=== PATIENT | female | born 1970 ===

== ENCOUNTER 2018-10-16 08:16 | Inpatient (IN) | payer BC ==
[2018-10-16] MEDS ORDERED: Sodium Chloride 0.9% 1,000 ML IV STA (08:57)
[2018-10-16] MEDS ORDERED: Morphine 2 mg/ml ISec IVP STA (08:58)
[2018-10-16 09:22] LABS: BASO # 0.01 K/mm3 (0.0-2.0); BASO % 0.1 % (0.0-3.0); HEMOGLOBIN 13.3 g/dL (12.0-16.0); LYMPH # 1.2 (1.2-3.4); LYMPH % 9.4 % (22.0-35.0); MEAN CELL VOLUME 66.2 fl (80.0-105.0); MEAN CORPUSCULAR HEMOGLOBIN 21.2 pg (25.0-35.0); MEAN PLATELET VOLUME 9.4 fl (7.0-11.0); MONO # 0.7 (0.1-0.6); MONO % 5.7 % (1.0-6.0); RBC 6.27 10^6/uL (3.5-6.1); RED CELL DISTRIBUTION WIDTH 15.6 % (11.5-14.5); WHITE BLOOD COUNT 12.7 10^3/uL (4.5-11.0)
[2018-10-16 09:31] LABS: URINE BILIRUBIN NEGATIVE (NEGATIVE); URINE BLOOD NEGATIVE (NEGATIVE); URINE GLUCOSE (UA) NEGATIVE (NEGATIVE); URINE LEUKOCYTE ESTERASE NEGATIVE Leu/uL (NEGATIVE); URINE PROTEIN NEGATIVE mg/dL (<30 mg/dL); URINE UROBILINOGEN 0.2 E.U./dL (<1 E.U./dL)
[2018-10-16 09:31] LABS: ALB/GLOB RATIO 1.3 (1.1-1.8); ALBUMIN 4.8 g/dL (3.0-4.8); ALT/SGPT 13 U/L (7-56); AST/SGOT 30 U/L (14-36); BLOOD UREA NITROGEN 11 mg/dL (7-21); CALCIUM 9.5 mg/dL (8.4-10.5); GFR NON-AFRICAN AMERICAN > 60; LIPASE 45 U/L (23-300)
[2018-10-16 09:32] LABS: INR 1.04; PARTIAL THROMBOPLASTIN TIME 40.1 Seconds (26.9-38.3); PROTHROMBIN TIME 11.8 SECONDS (9.4-12.5)
[2018-10-16 09:33] LABS: URINE APPEARANCE CLEAR (CLEAR); URINE COLOR YELLOW (YELLOW)
--- NOTE | 2018-10-16 09:40 | ED PDOC ---
Arrival/HPI - General Historian: Patient - History of Present Illness Narrative History of Present Illness (Text): 47 y/o female with no significant PMH presents to the ED with abdominal pain for one day. Pain started in epigastic area and moves downward to RLQ area. It's moderate, achy, no alleviating or worsening symptoms. Pain is associated with nausea and multiple episodes of non bloody vomiting. She denied diarrhea, fever, chills, change in bowel movement, hematochezia, melena, hemoptysis, dysurea, urinary frequency or other urinary symptoms. Patient does not use NSAID regularly and her menses are regular. She denied SOB, chest pain, palpitations, headache, dizziness, muscle weakness, leg swelling. Time/Duration: 24 hours Symptom Course: Unchanged Quality: Aching Severity Level: 7 Context: Home <Vinicius Lassiter - Last Filed: 10/16/18 09:41> <Parrish Hernadez - Last Filed: 10/16/18 12:28> - General Chief Complaint: Abdominal Pain Time Seen by Provider: 10/16/18 08:21 Past Medical History - Provider Review Nursing Documentation Reviewed: Yes - Travel History Have you recently traveled outside [place] w/in the past 3 mons?: No - Infectious Disease Hx of Infectious Diseases: None - Reproductive Menopause: Yes - Cardiac Hx Cardiac Disorders: No - Pulmonary Hx Respiratory Disorders: No - HEENT Hx HEENT Disorder: No - Psychiatric Hx Substance Use: No - Anesthesia Hx Anesthesia: No <Vinicius Lassiter - Last Filed: 10/16/18 09:41> Family/Social History - Physician Review Nursing Documentation Reviewed: Yes Family/Social History: Diabetes, Hypertension Smoking Status: Unknown If Ever Smoked Hx Alcohol Use: No Hx Substance Use: No Hx Substance Use Treatment: No <Vinicius Lassiter - Last Filed: 10/16/18 09:41> Allergies/Home Meds <Vinicius Lassiter - Last Filed: 10/16/18 09:41> <Parrish Hernadez - Last Filed: 10/16/18 12:28> Allergies/Adverse Reactions: Allergies No Known Allergies Allergy (Verified 10/16/18 08:26) Home Medications: Home Meds Medication Instructions Recorded Confirmed No Known Home Med 10/16/18 10/16/18 Review of Systems - Physician Review All systems were reviewed & negative as marked: Yes - Review of Systems Constitutional: Normal. absent: Weight Change, Fevers Eyes: Normal ENT: Normal Respiratory: Normal. absent: SOB, Cough Cardiovascular: Normal Gastrointestinal: Abdominal Pain, Nausea, Vomiting, Anorexia. absent: Constipation, Diarrhea, Hematochezia, Hematemesis Genitourinary Female: Normal Musculoskeletal: Normal Skin: Normal Endocrine: Normal Hemo/Lymphatic: Normal Psychiatric: Normal <Vinicius Lassiter - Last Filed: 10/16/18 09:41> Physical Exam Vital Signs Reviewed: Yes Vital Signs Temp Pulse Resp BP Pulse Ox 10/16/18 08:24 98.5 F 85 16 116/78 97 Temperature: Afebrile Blood Pressure: Normal Pulse: Regular Respiratory Rate: Normal Appearance: Positive for: Well-Appearing, Non-Toxic, Comfortable Pain Distress: Mild Mental Status: Positive for: Alert and Oriented X 3 - Systems Exam Head: Present: Atraumatic, Normocephalic Pupils: Present: PERRL Extroacular Muscles: Present: EOMI Conjunctiva: Present: Normal Ears: Present: Normal Mouth: Present: Moist Mucous Membranes Neck: Present: Normal Range of Motion Respiratory/Chest: Present: Clear to Auscultation, Good Air Exchange. No: Respiratory Distress, Wheezes, Rhonchi Cardiovascular: Present: Regular Rate and Rhythm, Normal S1, S2. No: Rub, Gallop Abdomen: Present: Tenderness, Rebound, Guarding, McBurney's Point Tender, Rovsing's Sign Present, Other (positive obturator sign) Back: Present: Normal Inspection Upper Extremity: Present: Normal Inspection. No: Cyanosis, Edema Lower Extremity: Present: Normal Inspection. No: Edema Neurological: Present: GCS=15, CN II-XII Intact, Speech Normal Skin: Present: Warm, Dry, Normal Color. No: Rashes Psychiatric: Present: Alert, Oriented x 3, Normal Insight <Vinicius Lassiter - Last Filed: 10/16/18 09:41> Vital Signs Temp Pulse Resp BP Pulse Ox 10/16/18 08:24 98.5 F 85 16 116/78 97 <Parrish Hernadez - Last Filed: 10/16/18 12:28> Medical Decision Making - Lab Interpretations Lab Results: Total Bilirubin 1.0 mg/dL (0.2-1.3) 10/16/18 09:08 AST 30 U/L (14-36) 10/16/18 09:08 ALT 13 U/L (7-56) 10/16/18 09:08 Alkaline Phosphatase 72 U/L (38-126) 10/16/18 09:08 Total Protein 8.5 g/dL (5.8-8.3) H 10/16/18 09:08 Albumin 4.8 g/dL (3.0-4.8) 10/16/18 09:08 Globulin 3.7 gm/dL 10/16/18 09:08 Albumin/Globulin Ratio 1.3 (1.1-1.8) 10/16/18 09:08 Lipase 45 U/L (23-300) 10/16/18 09:08 - RAD Interpretation Radiology Orders: 10/16/18 08:58 ABD & PELVIS IV CONTRAST ONLY [CT] Stat - Medication Orders Current Medication Orders: Sodium Chloride (Sodium Chloride 0.9%) 1,000 mls @ 999 mls/hr IV .Q1H1M STA Stop: 10/16/18 09:57 Discontinued Medications Morphine Sulfate (Morphine) 2 mg IVP STAT STA Stop: 10/16/18 08:59 Last Admin: 10/16/18 09:24 Dose: 2 mg MAR Pain Assessment Document 10/16/18 09:24 MA (Rec: 10/16/18 09:24 [id number]) Pain Reassessment Is this a pain reassessment? Yes Sleep Is patient sleeping during reassessment? No Presence of Pain Presence of Pain Yes Pain Scale Used Protocol: PSCALES Pain Scale Used Numeric Location Pain Location Body Site Abdomen Description Description Constant Intensity of Pain at present 8 Pain Behavior Guarding Aggravating Factors Changing Position IVP Administration Document 10/16/18 09:24 MA (Rec: 10/16/18 09:24 [facility] [id number]) Charges for Administration # of IVP Administrations 1 Ondansetron HCl (Zofran Inj) 8 mg IVP STAT STA Stop: 10/16/18 08:58 Last Admin: 10/16/18 09:25 Dose: 8 mg IVP Administration Document 10/16/18 09:25 MA (Rec: 10/16/18 09:25 [facility] [id number]) Charges for Administration # of IVP Administrations 1 <Vinicius Lassiter - Last Filed: 10/16/18 09:41> ED Course and Treatment: 10/16/18 10:01 Sruthi Nichols is a 47 year old female who presents to the emergency department with a complaint of 1 day duration abdominal pain. In agreement with resident note, which includes further HPI details. Patient was seen and evaluated with resident, came up with plan and treatment together. 10/16/18 12:26 IMPRESSION: Thickening and abnormal enhancement of the appendix with periappendiceal fat infiltration consistent with acute appendicitis. No evidence of pneumoperitoneum or abscess. Dr. Louis consulted, assistant professor surgical technology took report. Dr. Lazo accepts patient to her service. - Lab Interpretations Lab Results: PT 11.8 SECONDS (9.4-12.5) 10/16/18 09:08 INR 1.04 10/16/18 09:08 APTT 40.1 Seconds (26.9-38.3) H 10/16/18 09:08 Total Bilirubin 1.0 mg/dL (0.2-1.3) 10/16/18 09:08 AST 30 U/L (14-36) 10/16/18 09:08 ALT 13 U/L (7-56) 10/16/18 09:08 Alkaline Phosphatase 72 U/L (38-126) 10/16/18 09:08 Total Protein 8.5 g/dL (5.8-8.3) H 10/16/18 09:08 Albumin 4.8 g/dL (3.0-4.8) 10/16/18 09:08 Globulin 3.7 gm/dL 10/16/18 09:08 Albumin/Globulin Ratio 1.3 (1.1-1.8) 10/16/18 09:08 Lipase 45 U/L (23-300) 10/16/18 09:08 Urine Color Yellow (YELLOW) 10/16/18 08:56 Urine Appearance Clear (CLEAR) 10/16/18 08:56 Urine pH 7.0 (4.7-8.0) 10/16/18 08:56 Ur Specific [place] 1.020 (1.005-1.035) 10/16/18 08:56 Urine Protein Negative mg/dL (<30 mg/dL) 10/16/18 08:56 Urine Glucose (UA) Negative mg/dL (NEGATIVE) 10/16/18 08:56 Urine Ketones Trace mg/dL (NEGATIVE) H 10/16/18 08:56 Urine Blood Negative (NEGATIVE) 10/16/18 08:56 Urine Nitrate Negative (NEGATIVE) 10/16/18 08:56 Urine Bilirubin Negative (NEGATIVE) 10/16/18 08:56 Urine Urobilinogen 0.2 E.U./dL (<1 E.U./dL) 10/16/18 08:56 Ur Leukocyte Esterase Negative Stella/uL (NEGATIVE) 10/16/18 08:56 Urine HCG, Qual Negative (NEGATIVE) 10/16/18 08:56 Urine HCG, Qual Negative (NEGATIVE) 10/16/18 08:56 - RAD Interpretation Radiology Orders: 10/16/18 08:58 ABD & PELVIS IV CONTRAST ONLY [CT] Stat - Medication Orders Current Medication Orders: Discontinued Medications Sodium Chloride (Sodium Chloride 0.9%) 1,000 mls @ 999 mls/hr IV .Q1H1M STA Stop: 10/16/18 09:57 Last Admin: 10/16/18 09:29 Dose: 999 mls/hr eMAR Start Stop Document 10/16/18 09:29 MA (Rec: 10/16/18 09:36 [place] [id number] Intravenous Solution Start Date 10/16/18 Start Time 09:30 Morphine Sulfate (Morphine) 2 mg IVP STAT STA Stop: 10/16/18 08:59 Last Admin: 10/16/18 09:24 Dose: 2 mg MAR Pain Assessment Document 10/16/18 09:24 MA (Rec: 10/16/18 09:24 [facility] [id number]) Pain Reassessment Is this a pain reassessment? Yes Sleep Is patient sleeping during reassessment? No Presence of Pain Presence of Pain Yes Pain Scale Used Protocol: PSCALES Pain Scale Used Numeric Location Pain Location Body Site Abdomen Description Description Constant Intensity of Pain at present 8 Pain Behavior Guarding Aggravating Factors Changing Position IVP Administration Document 10/16/18 09:24 MA (Rec: 10/16/18 09:24 [id number]) Charges for Administration # of IVP Administrations 1 Ondansetron HCl (Zofran Inj) 8 mg IVP STAT STA Stop: 10/16/18 08:58 Last Admin: 10/16/18 09:25 Dose: 8 mg IVP Administration Document 10/16/18 09:25 MA (Rec: 10/16/18 09:25 [id number]) Charges for Administration # of IVP Administrations 1 <Parrish Hernadez - Last Filed: 10/16/18 12:28> - Scribe Statement The provider has reviewed the documentation as recorded by the Scribe Angelica Del Valle Provider Scribe Attestation: All medical record entries made by the Scribe were at my direction and personally dictated by me. I have reviewed the chart and agree that the record accurately reflects my personal performance of the history, physical exam, medical decision making, and the department course for this patient. I have also personally directed, reviewed, and agree with the discharge instructions and disposition. <Parrish Hernadez - Last Filed: 10/16/18 12:28> Disposition/Present on Arrival - Present on Arrival Any Indicators Present on Arrival: No History of DVT/PE: No History of Uncontrolled Diabetes: No Urinary Catheter: No History of Decub. Ulcer: No History Surgical Site Infection Following: None <Vinicius Lassiter - Last Filed: 10/16/18 09:41> - Disposition Have Diagnosis and Disposition been Completed?: Yes Disposition Time: 11:09 Patient Plan: Admission <Parrish Hernadez - Last Filed: 10/16/18 12:28> - Disposition Diagnosis: Acute appendicitis Disposition: HOSPITALIZED Condition: FAIR
[2018-10-16] MEDS ORDERED: Iohexol 350 MG/100 ML VIAL ONE (09:46)
--- NOTE | 2018-10-16 10:29 | CT ---
Date of service: 10/16/2018 PROCEDURE: CT Abdomen and Pelvis with contrast HISTORY: RLQ tenderness COMPARISON: None. TECHNIQUE: Contrast dose: Radiation dose: Total exam DLP = 438.02 mGy-cm. This CT exam was performed using one or more of the following dose reduction techniques: Automated exposure control, adjustment of the mA and/or kV according to patient size, and/or use of iterative reconstruction technique. FINDINGS: LOWER THORAX: Unremarkable. LIVER: Unremarkable. No gross lesion or ductal dilatation. GALLBLADDER AND BILE DUCTS: Unremarkable. PANCREAS: Unremarkable. No gross lesion or ductal dilatation. SPLEEN: Unremarkable. ADRENALS: Unremarkable. No mass. KIDNEYS AND URETERS: Unremarkable. No hydronephrosis. No solid mass. VASCULATURE: Unremarkable. No aortic aneurysm. No aortic atherosclerotic calcification or mural plaque present. BOWEL: Unremarkable. No obstruction. No gross mural thickening. APPENDIX: Thickening and abnormal enhancement of the appendix with periappendiceal fat infiltration consistent with acute appendicitis. No evidence of pneumoperitoneum or abscess. PERITONEUM: Unremarkable. No free fluid. No free air. LYMPH NODES: Unremarkable. No enlarged lymph nodes. BLADDER: Unremarkable. REPRODUCTIVE: Unremarkable. BONES: No acute fracture. OTHER FINDINGS: None. IMPRESSION: Thickening and abnormal enhancement of the appendix with periappendiceal fat infiltration consistent with acute appendicitis. No evidence of pneumoperitoneum or abscess.
[2018-10-16] MEDS ORDERED: Piperacill/Tazo 4.5gm in NS 4.5 GM/100 ML BAG IVPB STA (10:50)
[2018-10-16] MEDS: Dextrose 5%/0.45% NS 1,000 ML IV SCH (11:53)
[2018-10-16 13:25] VITALS: BMI 27.9
[2018-10-16] MEDS ORDERED: Pneumococcal 23-Valent Vaccine IM ONE (13:25)
[2018-10-16] MEDS ORDERED: Influenza Vaccine 60 mcg/0.5 mL SYR (4YR UP) IM ONE (13:25)
--- NOTE | 2018-10-16 14:37 | CP.PCM.CON ---
History of Present Illness - History of Present Illness History of Present Illness: Clive Knight, PGY-[address] Louis (Surgery) Ms. Nichols is a pleasant 47 year old female with a recent history of tooth infection last week who presents with abdominal pain that began yesterday morning. Patient states that the pain was located above the umbilicus, and describes it as dull and rated as a 7/10 initially. Patient stated that after she woke up this morning, the pain has moved to the right lower quadrant and was constant. Patient endorses nausea, vomiting, chills, loss of appetite and shakes but denies fevers, dysuria, melena, hemtochezia, chest pain, palpitations, shortness of breath. Patient states that she vomited nonbilious nonbloody vomit that consisted of food and crackers 6-7 times since yesterday, before arriving at the hospital. PMHx: denies PSHx: dental procedure All: NKDA Social: denies ETOH, tobacco and illicit drug use Fam Hx: sister - wallace Meds: Denies PMD: Dr. Lazo Review of Systems - Review of Systems Review of Systems: 12 point ROS completed and negative except as described in HPI. Past Patient History - Infectious Disease Hx of Infectious Diseases: None - Past Social History Smoking Status: Never Smoked - CARDIAC Hx Cardiac Disorders: No - PULMONARY Hx Respiratory Disorders: No - NEUROLOGICAL Hx Neurological Disorder: No - HEENT Hx HEENT Problems: No - RENAL Hx Chronic Kidney Disease: No - ENDOCRINE/METABOLIC Hx Endocrine Disorders: No - HEMATOLOGICAL/ONCOLOGICAL Hx Blood Disorders: No - INTEGUMENTARY Hx Dermatological Problems: Yes Other/Comment: 5 areas of red skin to lower abd left, pt just noticed today, no c/o itch or discomfort - MUSCULOSKELETAL/RHEUMATOLOGICAL Hx Musculoskeletal Disorders: No Hx Falls: No - GASTROINTESTINAL Hx Gastrointestinal Disorders: No - GENITOURINARY/GYNECOLOGICAL Hx Genitourinary Disorders: Yes Other/Comment: 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 - PSYCHIATRIC Hx Psychophysiologic Disorder: No Hx Substance Use: No - SURGICAL HISTORY Hx Surgeries: No - ANESTHESIA Hx Anesthesia: No Meds Allergies/Adverse Reactions: Allergies Allergy/AdvReac Type Severity Reaction Status Date / Time No Known Allergies Allergy Verified 10/16/18 08:26 - Medications Medications: Current Medications Dextrose/Sodium Chloride (Dextrose 5%/0.45% Ns 1000 Ml) 1,000 mls @ 100 mls/hr IV .Q10H DEVORAH Last Admin: 10/16/18 11:53 Dose: 100 mls/hr Physical Exam - Constitutional Appears: Well, No Acute Distress - Head Exam Head Exam: ATRAUMATIC, NORMOCEPHALIC - Eye Exam Eye Exam: EOMI, Normal appearance Pupil Exam: PERRL - ENT Exam ENT Exam: Mucous Membranes Moist - Neck Exam Neck exam: Positive for: Normal Inspection - Respiratory Exam Respiratory Exam: Clear to Auscultation Bilateral, NORMAL BREATHING PATTERN - Cardiovascular Exam Cardiovascular Exam: RRR, +S1, +S2 - GI/Abdominal Exam GI & Abdominal Exam: Diminished Bowel Sounds, Soft, Tenderness (+ RLQ, + Rovsing, + Mcburney's point). absent: Distended, Firm, Guarding, Rebound - Extremities Exam Extremities exam: Positive for: full ROM - Back Exam Back exam: absent: CVA tenderness (L), CVA tenderness (R) - Neurological Exam Neurological exam: Alert, Oriented x3 - Psychiatric Exam Psychiatric exam: Normal Affect, Normal Mood - Skin Skin Exam: Dry, Intact, Normal Color, Warm Results - Vital Signs Recent Vital Signs: Last Vital Signs Temp 98.1 F 10/16/18 12:25 Pulse 75 10/16/18 12:58 Resp 16 10/16/18 12:58 BP 117/66 10/16/18 12:25 Pulse Ox 96 10/16/18 12:25 - Labs Result Diagrams: 10/16/18 09:08 10/16/18 09:08 Labs: Laboratory Results - last 24 hr 10/16/18 10/16/18 10/16/18 08:56 08:56 09:08 WBC 12.7 H RBC 6.27 H Hgb 13.3 Hct 41.5 MCV 66.2 L MCH 21.2 L MCHC 32.0 RDW 15.6 H Plt Count 294 MPV 9.4 Neut % (Auto) 84.8 H Lymph % (Auto) 9.4 L Kane % (Auto) 5.7 Eos % (Auto) 0.0 L Baso % (Auto) 0.1 Lymph # (Auto) 1.2 Kane # (Auto) 0.7 H Eos # (Auto) 0.0 Baso # (Auto) 0.01 Absolute Neuts (auto) 10.80 H PT INR APTT Sodium Potassium Chloride Carbon Dioxide Anion Gap BUN Creatinine Est GFR ( Amer) Est GFR (Non-Af Amer) Random Glucose Calcium Total Bilirubin AST ALT Alkaline Phosphatase Total Protein Albumin Globulin Albumin/Globulin Ratio Lipase Urine Color Yellow Urine Appearance Clear Urine pH 7.0 Ur Specific [place] 1.020 Urine Protein Negative Urine Glucose (UA) Negative Urine Ketones Trace H Urine Blood Negative Urine Nitrate Negative Urine Bilirubin Negative Urine Urobilinogen 0.2 Ur Leukocyte Esterase Negative Urine HCG, Qual Negative Blood Type Blood Type Confirm Antibody Screen BBK History Checked 10/16/18 10/16/18 10/16/18 09:08 09:08 09:08 WBC RBC Hgb Hct MCV MCH MCHC RDW Plt Count MPV Neut % (Auto) Lymph % (Auto) Kane % (Auto) Eos % (Auto) Baso % (Auto) Lymph # (Auto) Kane # (Auto) Eos # (Auto) Baso # (Auto) Absolute Neuts (auto) PT 11.8 INR 1.04 APTT 40.1 H Sodium 136 Potassium 4.2 Chloride 97 L Carbon Dioxide 28 Anion Gap 16 BUN 11 Creatinine 0.6 L Est GFR ( Amer) > 60 Est GFR (Non-Af Amer) > 60 Random Glucose 127 H Calcium 9.5 Total Bilirubin 1.0 AST 30 ALT 13 Alkaline Phosphatase 72 Total Protein 8.5 H Albumin 4.8 Globulin 3.7 Albumin/Globulin Ratio 1.3 Lipase 45 Urine Color Urine Appearance Urine pH Ur Specific [place] Urine Protein Urine Glucose (UA) Urine Ketones Urine Blood Urine Nitrate Urine Bilirubin Urine Urobilinogen Ur Leukocyte Esterase Urine HCG, Qual Blood Type A POSITIVE Blood Type Confirm Antibody Screen Negative BBK History Checked No verified bt 10/16/18 09:20 WBC RBC Hgb Hct MCV MCH MCHC RDW Plt Count MPV Neut % (Auto) Lymph % (Auto) Kane % (Auto) Eos % (Auto) Baso % (Auto) Lymph # (Auto) Kane # (Auto) Eos # (Auto) Baso # (Auto) Absolute Neuts (auto) PT INR APTT Sodium Potassium Chloride Carbon Dioxide Anion Gap BUN Creatinine Est GFR ( Amer) Est GFR (Non-Af Amer) Random Glucose Calcium Total Bilirubin AST ALT Alkaline Phosphatase Total Protein Albumin Globulin Albumin/Globulin Ratio Lipase Urine Color Urine Appearance Urine pH Ur Specific [place] Urine Protein Urine Glucose (UA) Urine Ketones Urine Blood Urine Nitrate Urine Bilirubin Urine Urobilinogen Ur Leukocyte Esterase Urine HCG, Qual Blood Type Blood Type Confirm A POSITIVE Antibody Screen BBK History Checked Assessment & Plan - Assessment and Plan (Free Text) Assessment: 47 F who presents with acute appendicitis CT abd/pelvis: Thickening and abnormal enhancement of the appendix with periappendiceal fat infiltration consistent with acute appendicitis. No evidence of pneumoperitoneum or abscess. Plan: - NPO, IVF - Pain control - Plan for lap appendectomy later today - Consent obtained Further recs per Dr. Heriberto Knight, PGY-1
[2018-10-16] MEDS ORDERED: Midazolam 2 MG/2 ML VIAL ONE (15:38)
[2018-10-16] MEDS ORDERED: Propofol 10 mg/ml Inj (20 ML) ONE (15:38)
[2018-10-16] MEDS ORDERED: Rocuronium 10 mg/ml (5 ml) ONE (15:39)
[2018-10-16] MEDS ORDERED: Lidocaine 1% 5ml Abboject ONE (15:39)
[2018-10-16] MEDS ORDERED: Succinylcholine 200 mg/10 ml Inj IV ONE (15:39)
[2018-10-16] MEDS ORDERED: Neostigmine Methylsulfate 3mg/3ml Syringe IV ONE (15:39)
[2018-10-16] MEDS: Bupivacaine 0.5% 50 ML IJ ONE ×2 (16:37→16:54)
[2018-10-16] MEDS ORDERED: HYDROmorphone 0.5 mg/0.5 ml ISec IVP PRN (17:03)
--- NOTE | 2018-10-16 17:06 | PCM.SURG1 ---
Surgeon's Initial Post Op Note - Surgeon's Notes Surgeon: Herbierto Environment Coordinator: Dieog PGY4 Type of Anesthesia: General Endo, Local Anesthesia Administered By: Ruiz Pre-Operative Diagnosis: Appendicitis Operative Findings: Acutely inflamed appendix Post-Operative Diagnosis: same Operation Performed: laparoscopic appendectomy Specimen/Specimens Removed: appendix Estimated Blood Loss: EBL {In ML}: 10 Blood Products Given: N/A Drains Used: No Drains Post-Op Condition: Good Date of Surgery/Procedure: 10/16/18 Time of Surgery/Procedure: 17:04
[2018-10-16] MEDS ORDERED: Lactated Ringer's 1,000 ML IV SCH (17:15)
--- NOTE | 2018-10-16 21:50 | HP ---
DATE OF EXAM: 10/16/2018 HISTORY OF PRESENT ILLNESS: The patient is a 47-year-old [place] female. States she was okay yesterday. She started to have some abdominal discomfort. She ate homemade food, pain started around umbilical area. She felt nauseous. Initially, pain was 7-8/10. Then this morning, the pain localized to the right lower quadrant area. She did vomit once. She started to have chills. No history of chest pain. No shortness of breath. PAST MEDICAL HISTORY: Not significant. She recently had some dental procedure done. ALLERGIES: NOT ALLERGIC TO ANY MEDICATION. SOCIAL HISTORY: She is . Denies drug abuse and alcohol use. PHYSICAL EXAMINATION: GENERAL: The patient is awake, alert, oriented. Not in acute distress. VITAL SIGNS: The patient is afebrile, pulse 80, respirations 18, blood pressure 129/83. LUNGS: Bilateral fair airflow. No rhonchi or crackle. HEART: S1 and S2 audible. ABDOMEN: Periumbilical discomfort, more so in the right lower quadrant area. She has rebound and guarding. NEUROLOGICAL: She is awake, alert, oriented, communicative. LABORATORY DATA: WBC is 12.7, hemoglobin 13, hematocrit 41, platelets 294. PT 11.8, INR 1.04. Chemistries; sodium 136, potassium 4.2, chloride 97, CO2 of 28, BUN 11, creatinine 0.6, blood sugar 127. LFTs are within normal limits. She had CT scan of the abdomen and pelvis done that showed thickening and abnormal enhancement of the appendix with periappendicular fat infiltration consistent with acute appendicitis. ASSESSMENT: 1. Acute appendicitis. 2. Leukocytosis. PLAN: The patient will be n.p.o. We will give IV antibiotics. Surgical consult has been requested. The patient is going for appendectomy within a next few hours. Gem Lazo MD
[2018-10-16 22:39] VITALS: RESP 18
--- NOTE | 2018-10-17 00:11 | CARD ---
APPROVED REPORT Date of service: 10/16/2018 EKG Measurement Heart [id number] <Conclusion> Normal sinus rhythm NDSTT abnormalities Borderline ECG
[2018-10-17 07:59] LABS: BASO # 0.03 K/mm3 (0.0-2.0); BASO % 0.4 % (0.0-3.0); EOS % 0.3 % (1.5-5.0); LYMPH # 1.8 (1.2-3.4); MEAN CELL VOLUME 67.1 fl (80.0-105.0); MEAN CORPUSCULAR HEMOGLOBIN 21.1 pg (25.0-35.0); MEAN CORPUSCULAR HGB CONC 31.5 g/dl (31.0-37.0); MEAN PLATELET VOLUME 9.4 fl (7.0-11.0); MONO # 0.5 (0.1-0.6); MONO % 7.7 % (1.0-6.0); RBC 5.11 10^6/uL (3.5-6.1); RED CELL DISTRIBUTION WIDTH 15.8 % (11.5-14.5); WHITE BLOOD COUNT 7.1 10^3/uL (4.5-11.0)
[2018-10-17 08:02] VITALS: BP 115/66; PULSE 69; TEMP 98.5; O2SAT 96
[2018-10-17 08:02] LABS: ALB/GLOB RATIO 1.2 (1.1-1.8); ALBUMIN 3.5 g/dL (3.0-4.8); ALT/SGPT 18 U/L (7-56); AST/SGOT 23 U/L (14-36); BLOOD UREA NITROGEN 7 mg/dL (7-21); CALCIUM 8.3 mg/dL (8.4-10.5); GFR NON-AFRICAN AMERICAN > 60
[2018-10-17 08:03] LABS: HEMOGLOBIN 10.8 g/dL (12.0-16.0)
--- NOTE | 2018-10-17 09:13 | CP.PCM.PN ---
Subjective - Date & Time of Evaluation Date of Evaluation: 10/17/18 Time of Evaluation: 09:08 - Subjective Subjective: Surgery: Dr. Louis Pt seen and examined. Resting comfortably in bed. Mild pain. Tolerating diet. Ambulating w. out difficulty. Objective - Vital Signs/Intake and Output Vital Signs (last 24 hours): Temp Pulse Resp BP Pulse Ox 98.5 F 69 18 115/66 96 10/17/18 08:01 10/17/18 08:01 10/17/18 08:01 10/17/18 08:01 10/17/18 08:01 Intake and Output: 10/17/18 10/17/18 06:59 18:59 Intake Total 540 Balance 540 - Medications Medications: Current Medications Acetaminophen (Tylenol 325mg Tab) 650 mg PO Q6H PRN PRN Reason: Pain, moderate (4-7) Acetaminophen (Tylenol 325mg Tab) 650 mg PO Q6H PRN PRN Reason: Fever >100.4 F Dextrose/Sodium Chloride (Dextrose 5%/0.45% Ns 1000 Ml) 1,000 mls @ 100 mls/hr IV .Q10H DEVORAH Last Admin: 10/16/18 11:53 Dose: 100 mls/hr Ibuprofen (Motrin Tab) 600 mg PO Q6H PRN PRN Reason: Pain, Mild (1-3) Last Admin: 10/17/18 02:32 Dose: 600 mg Ondansetron HCl (Zofran Inj) 4 mg IVP Q6H PRN PRN Reason: Nausea/Vomiting - Labs Labs: 10/17/18 07:00 10/17/18 07:00 PT 11.8 SECONDS (9.4-12.5) 10/16/18 09:08 INR 1.04 10/16/18 09:08 APTT 40.1 Seconds (26.9-38.3) H 10/16/18 09:08 - Constitutional Appears: Non-toxic, No Acute Distress - Head Exam Head Exam: ATRAUMATIC, NORMOCEPHALIC - Eye Exam Eye Exam: EOMI - ENT Exam ENT Exam: Mucous Membranes Moist - Neck Exam Neck Exam: Full ROM - Respiratory Exam Respiratory Exam: NORMAL BREATHING PATTERN. absent: Accessory Muscle Use, Respiratory Distress - GI/Abdominal Exam GI & Abdominal Exam: Soft, Tenderness (hilary-incisional ). absent: Distended, Firm, Guarding, Rigid, Rebound - Extremities Exam Extremities Exam: absent: Calf Tenderness, Pedal Edema - Neurological Exam Neurological Exam: Alert, Awake, Oriented x3 Assessment and Plan - Assessment and Plan (Free Text) Assessment: 47F w. appendicitis, s/p lap appy, POD#1 -Pt clear for D/C from surgical standpoint -advil/tylenol for pain -diet as tolerated -No lifting >15-20lbs for 4 weeks -f/u in office 1-2 weeks -d/w attending Zemaitis PGY4
[2018-10-17] MEDS: Dextrose 5%/0.45% NS 1,000 ML IV SCH (09:44)
--- NOTE | 2018-10-18 02:35 | DS ---
HISTORY OF PRESENT ILLNESS: The patient is a 47-year-old, seen and examined, underwent laparoscopic appendectomy, doing well, eating and tolerating, and ambulating. PHYSICAL EXAMINATION: VITAL SIGNS: The patient is afebrile, pulse 69, respirations 18, and blood pressure 115/66. LUNGS: Bilateral fair airflow. No rhonchi or crackle. HEART: S1 and S2 audible. ABDOMEN: Soft. Slight palpable discomfort. NEUROLOGIC: The patient is awake, alert, oriented, and able to communicate. LABORATORY DATA: WBC 7.1, hemoglobin 10.8, hematocrit 34, and platelet of 243. Chemistry; sodium 138, potassium 4.2, chloride 106, CO2 of 22, BUN 7, creatinine 0.7, and blood sugar of 100. ASSESSMENT: 1. Status post acute appendicitis, status post laparoscopic cholecystectomy. 2. Leukocytosis, resolved. PLAN: The patient is clinically stable, eating and tolerating. No need for antibiotics. We will discharge the patient home. She will follow up with her PMD and she will follow up with Dr. Louis in 2 weeks. Gem Lazo MD
--- NOTE | 2018-10-29 23:45 | OP ---
PROCEDURE DATE: 10/16/2018 PREOPERATIVE DIAGNOSIS: Acute appendicitis. POSTOPERATIVE DIAGNOSIS: Acute appendicitis. PROCEDURE PERFORMED: Laparoscopic appendectomy. DESCRIPTION OF PROCEDURE: In the operating room, the patient was identified by name, name of procedure, laterality, and my merari. The consent was compared and accepted. Timeout having been complete, the abdomen having been prepped with chlorhexidine waiting three minutes and then draping, the operation began. The supraumbilical incision was made through the skin and subcutaneous tissues that was dissected down through the peritoneum and the trocar was inserted under direct vision. Circumferentially, I could see the tip of the appendix encountered nicely and quickly. The suprapubic and left lower quadrant placed. The tip of the appendix was drawn up. The base was taken serially with Harmonic down through the base. The base was then taken with Endo-RAJAN using a 5-mm scope, removed in a bag. The abdomen was irrigated and dried. There was nothing untoward in the cecum. Around the cecum, where in the small bowel, there was no injury that we could see. The abdomen was dried. The specimen removed and the incisions were closed with stitch of 2-0 Vicryl. The wounds were injected with Marcaine, subcuticular stitch of Vicryl, closed with Dermabond. The patient was taken to the recovery room in good condition after the sponge and needle counts were declared correct. Leroy Louis MD TOM
== END 2018-10-17 13:09 | disposition home or self-care (01) | DRG 343 ==
LOC: ED 08:16 → ERH 11:42 → 5RSO 12:45
PROVIDERS: ADMIT Internal Medicine; ATTEND Internal Medicine
PROC: 0DTJ4ZZ Resection of Appendix, Percutaneous Endoscopic Approach (ICD-10-PCS; principal; 2018-10-16 18:00)
DX: K35.80 Unspecified acute appendicitis (principal)